=== PATIENT | male | born 1975 | race Caucasian/White ===

== ENCOUNTER 2016-08-01 20:21 | Observation (INO) | payer OTHER ==
[2016-08-01] MEDS ORDERED: Sodium Chloride 0.9% 1000 ML 1,000 ML IV STA (20:40)
[2016-08-01] MEDS ORDERED: CLINDAMYCIN-D5W 900 MG/50 ML*** 50 ML IV ONE ×2 (20:44→20:53)
[2016-08-01] MEDS ORDERED: TORAdol 30 mg Injection IV ONE (20:45)
--- NOTE | 2016-08-01 20:47 | ERPHSYRPT ---
- History of Present Illness Time Seen by Provider: 08/01/16 20:30 Source: patient Exam Limitations: no limitations Physician History: YESTERDAY PT WAS SHOOTING UP METHAMPHETAMINE AND THIS MORNING HAD REDNESS, SWELLING AND TENDERNESS OF THE RIGHT ELBOW, RIGHT KNEE AND LEFT FOOT WITH EARACHES. PT ALSO C/O URINARY HESITATION WHEN HE IS USING METHAMPHETAMINE. PT DENIES FEVER, CHILLS, DIAPHORESIS, CHEST PAIN, NAUSEA, VOMITING, ABDOMINAL PAIN. Allergies/Adverse Reactions: acetaminophen [From [place]] Allergy (Verified 08/01/16 20:49) hydrocodone [From [place]] Allergy (Verified 08/01/16 20:49) - Review of Systems Constitutional: No Fever, No Chills Ears, Nose, & Throat: Ear Pain Respiratory: No Dyspnea Cardiac: No Chest Pain Abdominal/Gastrointestinal: No Abdominal Pain, No Nausea, No Vomiting Genitourinary Symptoms: Hesitancy Musculoskeletal: Other (SWELLING, REDNESS AND TENDERNESS OF THE RIGHT ELBOW, RIGHT KNEE AND LEFT FOOT.) Endocrine: No Excessive Sweating All Other Systems: Reviewed and Negative - Past Medical History Pertinent Past Medical History: Yes Psycho-Social History: Depression, Other Other Medical History: HIV positive - Past Surgical History Past Surgical History: No - Social History Drug Use: methamphetamines - Nursing Vital Signs Nursing Vital Signs: Initial Vital Signs Temperature 99.5 F Temperature Source Oral Pulse Rate 100 Respiratory Rate 20 Blood Pressure [Right Arm] 145/88 Pain Intensity 8 - Physical Exam General Appearance: alert Eye Exam: PERRL/EOMI Ears, Nose, Throat Exam: TMs normal, pharynx normal, moist mucous membranes Neck Exam: normal inspection Respiratory Exam: lungs clear Cardiovascular Exam: normal heart sounds Gastrointestinal/Abdomen Exam: soft, normal bowel sounds Back Exam: normal range of motion Extremity Exam: swelling (MILD ERYTHEMA, EDEMA AND TENDERNESS OF THE MEDIAL ASPECT OF THE RIGHT ELBOW AND ANTERIOR ASPECT OF THE RIGHT KNEE. DORSUM OF THE LEFT FOOT HAS ERYTHEMA AND MILD EDEMA SURROUNDING AN ULCER.) Neurologic Exam: alert, cooperative Skin Exam: other (ULCERS SCATTERED OVER THE EXTREMITIES) SpO2 Interpretation: normal SpO2: 99 Oxygen Delivery: Room Air - Course Nursing assessment & vital signs reviewed: Yes Ordered Tests: Active Orders 24 hr Category Date Time Status IV Insertion STAT Care 08/01/16 20:40 Active BLOOD CULTURE Stat Lab 08/01/16 21:10 Received CBC W DIFF Stat Lab 08/01/16 20:55 Completed CMP Stat Lab 08/01/16 20:55 Completed Lactic Acid Stat Lab 08/01/16 21:45 Ordered Lactic Acid Urgent Lab 08/01/16 20:40 Completed UA W/ MICROSCOPIC Stat Lab 08/01/16 21:00 Completed Urine Triage Profile Stat Lab 08/01/16 21:35 Uncollected Medication Summary Discontinued Medications Generic Name Dose Route Start Last Admin Trade Name Freq PRN Reason Stop Dose Admin Clindamycin HCl/Dextrose 50 mls @ 100 mls/hr 08/01/16 20:44 08/01/16 20:57 Clindamycin-D5w 900 Mg/50 Ml IV 08/01/16 21:13 100 mls/hr STAT ONE Administration Sodium Chloride 1,000 mls @ 999 mls/hr 08/01/16 20:40 08/01/16 20:57 Sodium Chloride 0.9% 1000 Ml IV 08/01/16 21:40 999 mls/hr .Q1H1M STA Administration Clindamycin HCl/Dextrose Confirm 08/01/16 20:53 Clindamycin-D5w 900 Mg/50 Ml Administered 08/01/16 20:54 Dose 50 mls @ ud IV .STK-MED ONE Sodium Chloride Confirm 08/01/16 20:53 Sodium Chloride 0.9% 1000 Ml Administered 08/01/16 20:54 Dose 1,000 mls @ ud .ROUTE .STK-MED ONE Ketorolac Tromethamine 30 mg 08/01/16 20:45 08/01/16 20:56 Toradol 30 Mg Injection IV 08/01/16 20:46 30 mg STAT ONE Administration Ketorolac Tromethamine Confirm 08/01/16 20:52 Toradol 30 Mg Injection Administered 08/01/16 20:53 Dose 30 mg .ROUTE .STK-MED ONE Lab/Rad Data: Laboratory Result Diagrams 08/01/16 20:55 08/01/16 20:55 Laboratory Results 08/01/16 08/01/16 08/01/16 Range/Units 21:00 20:55 20:55 WBC 12.7 H (4.0-10.5) K/mm3 RBC 4.53 (4.1-5.6) M/mm3 Hgb 12.7 (12.5-18.0) gm/dl Hct 39.8 L (42-50) % MCV 87.9 (78-100) fl MCH 28.0 (26-32) pg MCHC 31.9 L (32-36) g/dl RDW 14.6 H (11.5-14.0) % Plt Count 231 (150-450) K/mm3 MPV 10.4 H (6-9.5) fl Gran % 81.3 H (36.0-66.0) % Lymphocytes % 11.4 L (24.0-44.0) % Monocytes % 6.7 (0.0-12.0) % Eosinophils % 0.5 (0.00-5.0) % Basophils % 0.1 (0.0-0.4) % Basophils # 0.01 (0-0.4) Sodium 140 (136-145) mEq/L Potassium 3.7 (3.5-5.1) mEq/L Chloride 102 (98-107) mEq/L Carbon Dioxide 28.7 (21-32) mEq/L Anion Gap 12.8 (5-15) MEQ/L BUN 19 (9-20) mg/dL Creatinine 1.08 (0.55-1.30) mg/dl Estimated GFR > 60 ML/MIN Glucose 90 (70-110) MG/DL Lactic Acid (0.4-2.0) Calcium 8.5 (8.5-10.1) mg/dL Total Bilirubin 0.2 (0.2-1.0) mg/dL AST 22 (15-37) U/L ALT 36 (12-78) U/L Alkaline Phosphatase 88 (46-116) U/L Serum Total Protein 7.3 (6.4-8.2) gm/dL Albumin 3.5 (3.4-5.0) g/dL Ur Collection Type CLEAN CATCH Urine Color YELLOW (YELLOW) Urine Appearance CLEAR (CLEAR) Urine pH 5.5 (5-6) Ur Specific [place] >=1.030 (1.005-1.025) Urine Protein TRACE (Negative) Urine Glucose (UA) NEGATIVE (NEGATIVE) mg/dL Urine Ketones NEGATIVE (NEGATIVE) Urine Nitrite NEGATIVE (NEGATIVE) Urine Bilirubin NEGATIVE (NEGATIVE) Urine Urobilinogen 0.2 (0-1) mg/dL Urine WBC (Auto) NEGATIVE (NEGATIVE) Urine RBC (Auto) NEGATIVE (0-5) Carlos/ul Ur Epithelial Cells FEW (FEW) /HPF Urine Bacteria RARE (NEGATIVE) /HPF Urine Mucus SLIGHT (NEGATIVE) /HPF Specimen Received 08/01/16:2100 08/01/16 Range/Units 20:40 WBC (4.0-10.5) K/mm3 RBC (4.1-5.6) M/mm3 Hgb (12.5-18.0) gm/dl Hct (42-50) % MCV (78-100) fl MCH (26-32) pg MCHC (32-36) g/dl RDW (11.5-14.0) % Plt Count (150-450) K/mm3 MPV (6-9.5) fl Gran % (36.0-66.0) % Lymphocytes % (24.0-44.0) % Monocytes % (0.0-12.0) % Eosinophils % (0.00-5.0) % Basophils % (0.0-0.4) % Basophils # (0-0.4) Sodium (136-145) mEq/L Potassium (3.5-5.1) mEq/L Chloride (98-107) mEq/L Carbon Dioxide (21-32) mEq/L Anion Gap (5-15) MEQ/L BUN (9-20) mg/dL Creatinine (0.55-1.30) mg/dl Estimated GFR ML/MIN Glucose (70-110) MG/DL Lactic Acid 2.4 H (0.4-2.0) Calcium (8.5-10.1) mg/dL Total Bilirubin (0.2-1.0) mg/dL AST (15-37) U/L ALT (12-78) U/L Alkaline Phosphatase (46-116) U/L Serum Total Protein (6.4-8.2) gm/dL Albumin (3.4-5.0) g/dL Ur Collection Type Urine Color (YELLOW) Urine Appearance (CLEAR) Urine pH (5-6) Ur Specific [place] (1.005-1.025) Urine Protein (Negative) Urine Glucose (UA) (NEGATIVE) mg/dL Urine Ketones (NEGATIVE) Urine Nitrite (NEGATIVE) Urine Bilirubin (NEGATIVE) Urine Urobilinogen (0-1) mg/dL Urine WBC (Auto) (NEGATIVE) Urine RBC (Auto) (0-5) Carlos/ul Ur Epithelial Cells (FEW) /HPF Urine Bacteria (NEGATIVE) /HPF Urine Mucus (NEGATIVE) /HPF Specimen Received - Progress Discussed with DrJaclyn: Regina Morin (OBS - [id number]) - Departure Time of Disposition: 21:54 Departure Disposition: Observation Clinical Impression: CELLULITIS OF THE RIGHT ELBOW AND RIGHT KNEE, CELLULITIS OF THE LEFT FOOT, MULTIPLE ULCERS OF EXTREMITIES, HIV, DEPRESSION Condition: Fair Critical Care Time: No Referrals: AIMEE GAMA MD [Primary Care Provider] -
[2016-08-01] MEDS ORDERED: TORAdol 30 mg Injection ONE (20:52)
[2016-08-01] MEDS ORDERED: Sodium Chloride 0.9% 1000 ML 1,000 ML ONE (20:53)
[2016-08-01 21:14] LABS: BASOPHIL % 0.1 % (0.0-0.4); Eosinophil % 0.5 % (0.00-5.0); Granulocytes % 81.3 % (36.0-66.0); Lymphocytes % 11.4 % (24.0-44.0); Mean Cell Volume 87.9 fl (78-100); Mean Platelet Volume 10.4 fl (6-9.5); Monocytes % 6.7 % (0.0-12.0); Platelet Count 231 K/mm3 (150-450); Red Blood Count 4.53 M/mm3 (4.1-5.6); Red Cell Distribution Width 14.6 % (11.5-14.0); White Blood Count 12.7 K/mm3 (4.0-10.5)
[2016-08-01 21:22] LABS: Collection Type CLEAN CATCH
[2016-08-01 21:23] LABS: Bacteria RARE /HPF (NEGATIVE); COMPLETE URINE MICROSCOPIC? YES; Epithelial Cells FEW /HPF (FEW); Mucus SLIGHT /HPF (NEGATIVE); Ph 5.5 (5-6)
[2016-08-01 21:29] LABS: ALBUMIN 3.5 g/dL (3.4-5.0); ALKALINE PHOSPHATASE 88 U/L (46-116); ANION GAP 12.8 MEQ/L (5-15); BILIRUBIN,TOTAL 0.2 mg/dL (0.2-1.0); BLOOD UREA NITROGEN 19 mg/dL (9-20); CHLORIDE 102 mEq/L (98-107); Carbon Dioxide 28.7 mEq/L (21-32); Glucose 90 MG/DL (70-110); Potassium 3.7 mEq/L (3.5-5.1); SGOT/AST 22 U/L (15-37); SGPT/ALT 36 U/L (12-78); SODIUM 140 mEq/L (136-145); Total Protein 7.3 gm/dL (6.4-8.2)
[2016-08-01] MEDS ORDERED: Phenergan 25 MG INJ IV PRN (22:22)
[2016-08-01] MEDS ORDERED: xanAX 0.25 MG PO PRN (23:18)
[2016-08-01] MEDS ORDERED: ZOVIRAX 200 MG PO ONE (23:22)
[2016-08-01] MEDS: Sodium Chloride 0.9% 1000 ML 1,000 ML IV SCH (23:28)
[2016-08-01] MEDS ORDERED: NEURONTIN 300 MG PO ONE (23:30)
[2016-08-01] MEDS ORDERED: Naprosyn 500 MG PO ONE (23:30)
[2016-08-01] MEDS ORDERED: Wellbutrin XL 150 MG PO ONE (23:30)
[2016-08-01] MEDS ORDERED: Wellbutrin SR 150 MG ONE (23:50)
[2016-08-01] MEDS ORDERED: CLINDAMYCIN-D5W 600 MG/50 ML*** 50 ML IV ONE (23:54)
[2016-08-02] MEDS ORDERED: Cleocin Phosphate IV 600 MG/4 ML IV SCH
[2016-08-02] MEDS ORDERED: xanAX 0.25 MG ONE (00:29)
[2016-08-02] MEDS: ceLEXa 20 MG PO SCH ×2 (01:12→08:58)
[2016-08-02] MEDS: BENADRYL 25 MG CAPSULE PO PRN ×2 (01:13→21:33)
[2016-08-02] MEDS: Zocor 10MG PO SCH ×2 (01:14→21:33)
[2016-08-02] MEDS: CLINDAMYCIN-D5W 600 MG/50 ML*** 50 ML IV SCH ×5 (01:14→23:54)
[2016-08-02 05:51] LABS: BASOPHIL % 0.1 % (0.0-0.4); Eosinophil % 0.6 % (0.00-5.0); Granulocytes % 73.5 % (36.0-66.0); Lymphocytes % 17.4 % (24.0-44.0); Mean Cell Volume 87.4 fl (78-100); Monocytes % 8.4 % (0.0-12.0); Platelet Count 186 K/mm3 (150-450); Red Blood Count 3.97 M/mm3 (4.1-5.6); Red Cell Distribution Width 14.4 % (11.5-14.0); White Blood Count 9.2 K/mm3 (4.0-10.5)
[2016-08-02 06:01] LABS: Mean Corpuscular Hemoglobin 27.9 pg (26-32)
[2016-08-02 06:06] LABS: ALBUMIN 2.9 g/dL (3.4-5.0); ALKALINE PHOSPHATASE 71 U/L (46-116); BILIRUBIN,TOTAL 0.2 mg/dL (0.2-1.0); BLOOD UREA NITROGEN 13 mg/dL (9-20); CHLORIDE 106 mEq/L (98-107); Carbon Dioxide 26.7 mEq/L (21-32); Glucose 131 MG/DL (70-110); Potassium 3.5 mEq/L (3.5-5.1); SGOT/AST 17 U/L (15-37); SGPT/ALT 13 U/L (12-78); SODIUM 139 mEq/L (136-145); Total Protein 6.2 gm/dL (6.4-8.2)
[2016-08-02] MEDS: Sodium Chloride 0.9% 1000 ML 1,000 ML IV SCH ×2 (08:59→22:31)
[2016-08-02] MEDS ORDERED: FLUZONE QUAD 2016-2017 SYRINGE 36MO-64YO IM ONE (10:00)
[2016-08-02] MEDS: Levofloxacin 500MG/100ML D5W 100 ML IV SCH (12:42)
[2016-08-02] MEDS: MOTRIN 400 MG PO PRN (12:42)
[2016-08-02] MEDS: xanAX 0.25 MG PO PRN (18:16)
[2016-08-02] MEDS: TORAdol 30 mg Injection IV PRN (18:16)
[2016-08-02] MEDS ORDERED: NON-FORMULARY ITEM PO SCH (22:00)
[2016-08-03 05:34] LABS: Mean Cell Volume 88.3 fl (78-100); Mean Platelet Volume 10.4 fl (6-9.5); Platelet Count 187 K/mm3 (150-450); Red Blood Count 4.03 M/mm3 (4.1-5.6); Red Cell Distribution Width 14.7 % (11.5-14.0); White Blood Count 6.3 K/mm3 (4.0-10.5)
[2016-08-03] MEDS ORDERED: CLINDAMYCIN-D5W 600 MG/50 ML*** 50 ML IV ONE (05:34)
[2016-08-03 05:38] LABS: Mean Corpuscular Hemoglobin 27.7 pg (26-32)
[2016-08-03] MEDS: CLINDAMYCIN-D5W 600 MG/50 ML*** 50 ML IV SCH ×6 (05:41→23:32)
[2016-08-03 06:01] LABS: ALBUMIN 2.7 g/dL (3.4-5.0); ALKALINE PHOSPHATASE 70 U/L (46-116); ANION GAP 12.1 MEQ/L (5-15); BILIRUBIN,TOTAL 0.2 mg/dL (0.2-1.0); BLOOD UREA NITROGEN 11 mg/dL (9-20); CHLORIDE 107 mEq/L (98-107); Carbon Dioxide 25.7 mEq/L (21-32); Glucose 107 MG/DL (70-110); Potassium 3.9 mEq/L (3.5-5.1); SGOT/AST 16 U/L (15-37); SGPT/ALT 25 U/L (12-78); SODIUM 141 mEq/L (136-145); Total Protein 6.4 gm/dL (6.4-8.2)
--- NOTE | 2016-08-03 08:53 | HP ---
HISTORY OF PRESENT ILLNESS: Eric Beaver is a 41 year old male with past medical history HIV, depression and methamphetamine abuse. He was taking methamphetamine and presented to the emergency room yesterday with areas of redness, swelling, pain in right elbow and right knee. Also he had complained of some urinary hesitation. There was no reported history of fever or chills. The patient does have chronic nonhealing areas in left foot, left elbow and right wrist area. Upon initial evaluation in the emergency room he was noted to have blood pressure of 145/88, heart rate 100, respiratory rate 20, temperature 99.5F. He was treated with Clindamycin 900 mg IV x1, normal saline 1 liter x1, Toradol 30 mg IV x1. Subsequently he was admitted for further monitoring and management. Since admission he has continued on IV antibiotics. At the time of this evaluation he is alert, awake, comfortable, complains of pain, swelling, redness over right knee, right elbow area. Complains of right flank pain. He denies any history of injury or unusual activity prior to onset of flank pain. Appears comfortable. PAST MEDICAL HISTORY: As noted above. The patient also has history of chronic back pain. PAST SURGICAL HISTORY: Noncontributory. ALLERGIES: ACETAMINOPHEN, HYDROCODONE. CURRENT MEDICATIONS: Zovirax. FAMILY HISTORY: Noncontributory. SOCIAL HISTORY: The patient uses amphetamines. REVIEW OF SYSTEMS: Denies headache or dizziness. Denies fatigue. Denies fever. Denies chest pain, shortness of breath or cough. Denies abdominal pain, nausea or vomiting. Denies constipation or diarrhea. Complains of urinary hesitancy. Complains of right flank pain. Complains of pain and swelling in the right elbow and right knee area. The patient also complains of feeling of depressed, denied suicidal or homicidal ideation. PHYSICAL EXAMINATION: A young male lying comfortably in bed, not in acute distress. VITAL SIGNS: Blood pressure 119/64, heart rate 80, respiratory rate 18, temperature 98.3F, temperature max of 99.2F. Oxygen saturation 95% on room air. HEENT: Normocephalic. Pallor is present. No icterus is noted. NECK: No JVD is present. CVS: S1, S2 present. RESPIRATORY: Breath sounds are bilaterally diminished and clear to auscultation. ABDOMEN: Soft, nontender. NEURO: He is alert, oriented x3. EXTREMITIES: No edema on bilateral lower extremities. Examination of right elbow revealed edema, erythema, mildly increase in local temperature, local tenderness is present. Range of movement is painful. Examination of the right knee area reveals edema, erythema, local increased temperature. Local tenderness is present. Local warmth is present. Range of movement of right knee is painful. About 2 x 0.5 cm oval-shaped area is noted on dorsal aspect of left foot, some erythema is present. Area is open. No discharge is present. 4 mm sized dry area with scab it noted near left elbow. No erythema. Discharge is present. No local tenderness is present. About 6 to 7 mm size area is present near right wrist. The area is dry covered with scab. No erythema, no discharge is present. As per patient right knee and right areas are chronic and nonhealing. LABORATORY DATA AND TESTS: Notable for CBC with white blood cell of 12.7, hemoglobin 12.7, hematocrit 39.8. Today's CBC shows white blood cell of 9.2, hemoglobin 11.1, hematocrit 34.7. CMP on admission was unremarkable. Lactic acid was 2.4. Today's CMP is unremarkable. Glucose 131. UA showed trace protein, negative white blood cell, negative red blood cells, few epithelial cells, rare bacteria. Urine tox positive for methamphetamine and marijuana. Blood cultures from 08/01/2016 are pending. ASSESSMENT: A 41 year old male with impression: 1) Cellulitis of right elbow. 2) Cellulitis of right knee. 3) Chronic nonhealing superficial ulcers (left elbow, right wrist, dorsal aspect of left foot). 4) HIV. 5) Depression. 6) Urinary tract infection. PLAN: The patient is admitted for further monitoring and management. Continue Clindamycin. Will add Levaquin. Follow up CBC and cultures. Will obtain repeat lactic acid. Will obtain CT of right elbow, right knee area. The patient states that he just to continue on current antidepressant medications at this time and declines any change or increase of dose. Also addition of p.o. Motrin for back pain. The patient's clinical condition, work up results and plan of management was discussed with him in detail. The patient seems to be in understanding and agreement. Discussed with patient's nurse who was present at the time of this evaluation.
--- NOTE | 2016-08-03 09:31 | XRAY ---
Indication: Pain, swelling, and fever. Cellulitis. Multiple contiguous axial images obtained through the right elbow without contrast. Two-dimensional sagittal and coronal reformatted images obtained. Comparison: None Posterior elbow cutaneous and subcutaneous soft tissue swelling without focal solid/cystic mass or abnormal fluid/air collection. No acute fracture, suspicious lytic/blastic lesion, or osseous destructive process. Right elbow articulation is anatomic. No effusion. Impression: Posterior elbow cutaneous/subcutaneous soft tissue swelling favoring clinically reported cellulitis. No underlying fluid collection or evidence for osteomyelitis on this noncontrast exam. CT DI 37.17
--- NOTE | 2016-08-03 09:32 | XRAY ---
Indication: Pain, swelling, and fever. Cellulitis. Multiple contiguous axial images obtained through the right knee without contrast. Two-dimensional sagittal and coronal reformatted images obtained. Comparison: None Anterior knee cutaneous and subcutaneous soft tissue swelling without focal solid/cystic mass or abnormal fluid/air collection. Tiny nonspecific suprapatellar effusion. 4 mm medial condyle bone island. No acute fracture, suspicious lytic/blastic lesion, or osseous destructive process. Right knee articulation is anatomic. Medial femoral groove is shallow, a potential increased risk for patellar subluxation/dislocation. Remaining visualized noncontrasted soft tissues unremarkable. Impression: 1. Anterior knee cutaneous/subcutaneous soft tissue swelling favoring clinically reported cellulitis. No underlying evidence for osteomyelitis on this noncontrast exam. 2. Incidental tiny nonspecific suprapatellar effusion and medial condyle tiny bone island. 3. Shallow medial femoral groove, a potential increased risk for patellar subluxation/dislocation. CT DI 37.17
[2016-08-03] MEDS: TORAdol 30 mg Injection IV PRN ×2 (09:33→20:41)
[2016-08-03] MEDS: xanAX 0.25 MG PO PRN ×2 (09:33→22:53)
[2016-08-03] MEDS: ceLEXa 20 MG PO SCH (09:35)
[2016-08-03] MEDS: Levofloxacin 500MG/100ML D5W 100 ML IV SCH (09:35)
[2016-08-03] MEDS: Sodium Chloride 0.9% 1000 ML 1,000 ML IV SCH (11:40)
[2016-08-03] MEDS ORDERED: PHARMACY DOSING REQUIRED: VANCOMYCIN IV ONE (13:18)
--- NOTE | 2016-08-03 13:26 | PCM.HP ---
History of Present Illness - Chief Complaint Chief Complaint: cellulitis R elbow, Rt knee, L foot, for 2-3 days History of Present Illness: is a 41 year old male.YESTERDAY PT WAS SHOOTING UP METHAMPHETAMINE AND THIS MORNING HAD REDNESS, SWELLING AND TENDERNESS OF THE RIGHT ELBOW, RIGHT KNEE AND LEFT FOOT WITH EARACHES. PT ALSO C/O URINARY HESITATION WHEN HE IS USING METHAMPHETAMINE. PT DENIES FEVER, CHILLS, DIAPHORESIS, CHEST PAIN, NAUSEA , VOMITING, ABDOMINAL PAIN. - Review of Systems Constitutional: No Fever, No Chills Eyes: No Symptoms Ears, Nose, & Throat: No Symptoms Respiratory: No Cough, No Short Of Breath Cardiac: No Chest Pain, No Edema, No Syncope Abdominal/Gastrointestinal: No Abdominal Pain, No Nausea, No Vomiting, No Diarrhea Genitourinary Symptoms: No Dysuria Musculoskeletal: Joint Redness, Joint Swelling, No Back Pain, No Neck Pain Skin: No Rash Neurological: No Dizziness, No Focal Weakness, No Sensory Changes Psychological: No Symptoms Endocrine: No Symptoms Hematologic/Lymphatic: No Symptoms Immunological/Allergic: No Symptoms Medications & Allergies Home Medications: Home Medication List Acyclovir 200 mg Cap [Zovirax 200 mg ] 200 mg PO DAILY 08/01/16 [History Confirmed 08/01/16] Atorvastatin Calcium [Lipitor] 10 mg PO DAILY 08/01/16 [History Confirmed ] Bupropion HCl Xl 150 mg [Wellbutrin XL 150 MG] 300 mg PO DAILY 08/01/16 [ History Confirmed 08/01/16] Citalopram Hydrobromide [Celexa] 20 mg PO DAILY 08/01/16 [History Confirmed 05/19] Diphenhydramine HCl [Benadryl] 50 mg PO QHS 08/01/16 [History Confirmed 08/01/16 ] Efavirenz/Emtricitab/Tenofovir [Atripla Tablet] 1 each PO DAILY 08/01/16 [ History Confirmed 08/01/16] Gabapentin 600 mg PO DAILY 08/01/16 [History Confirmed 08/01/16] Melatonin 6 mg PO DAILY 08/01/16 [History Confirmed 08/01/16] Naproxen 500 mg PO DAILY 08/01/16 [History Confirmed 08/01/16] Allergies/Adverse Reactions: Allergies Allergy/AdvReac Type Severity Reaction Status Date / Time acetaminophen [From [place]] Allergy Verified 08/01/16 20:49 hydrocodone [From [place]] Allergy Verified 08/01/16 20:49 - Past Medical History Past Medical History: Yes Pyscho-Social History: Depression Comment: HIV positive - Past Surgical History Past Surgical History: No - Social History Smoking Status: Former smoker Exposure to second hand smoke: No Alcohol: Rarely Drug Use: methamphetamines - Physical Exam Vital Signs: Vital Signs - 24 hr Temp Pulse Resp BP Pulse Ox 08/03/16 07:45 98.3 F 86 16 125/58 95 08/03/16 04:00 98.4 F 83 20 121/64 97 08/03/16 00:00 98.7 F 93 H 20 120/65 97 08/02/16 20:00 98.2 F 100 H 18 131/65 95 08/02/16 16:30 98.2 F 80 20 122/68 94 L General Appearance: no apparent distress, alert Neurologic Exam: alert, oriented x 3, cooperative, normal mood/affect, nml cerebellar function, nml station & gait, sensation nml, No motor deficits Eye Exam: PERRL/EOMI, eyes nml inspection Ears, Nose, Throat Exam: normal ENT inspection, TMs normal, pharynx normal, moist mucous membranes Neck Exam: normal inspection, non-tender, supple, full range of motion Respiratory Exam: normal breath sounds, lungs clear, No respiratory distress Cardiovascular Exam: regular rate/rhythm, normal heart sounds, normal peripheral pulses Gastrointestinal/Abdomen Exam: soft, normal bowel sounds, No tenderness, No mass Back Exam: normal inspection, normal range of motion, No CVA tenderness, No vertebral tenderness Extremity Exam: normal inspection, normal range of motion, pelvis stable Skin Exam: normal color, warm, dry, No rash Lymphatic Exam: No adenopathy Results - Labs Lab/Micro Results: Lab Results-Last 24 Hours 08/03/16 08/03/16 Range/Units 05:15 05:15 WBC 6.3 (4.0-10.5) K/mm3 RBC 4.03 L (4.1-5.6) M/mm3 Hgb 11.2 L (12.5-18.0) gm/dl Hct 35.6 L (42-50) % MCV 88.3 (78-100) fl MCH 27.7 (26-32) pg MCHC 31.5 L (32-36) g/dl RDW 14.7 H (11.5-14.0) % Plt Count 187 (150-450) K/mm3 MPV 10.4 H (6-9.5) fl Sodium 141 (136-145) mEq/L Potassium 3.9 (3.5-5.1) mEq/L Chloride 107 (98-107) mEq/L Carbon Dioxide 25.7 (21-32) mEq/L Anion Gap 12.1 (5-15) MEQ/L BUN 11 (9-20) mg/dL Creatinine 0.90 (0.55-1.30) mg/dl Estimated GFR > 60 ML/MIN Glucose 107 (70-110) MG/DL Calcium 8.3 L (8.5-10.1) mg/dL Total Bilirubin 0.2 (0.2-1.0) mg/dL AST 16 (15-37) U/L ALT 25 (12-78) U/L Alkaline Phosphatase 70 (46-116) U/L Serum Total Protein 6.4 (6.4-8.2) gm/dL Albumin 2.7 L (3.4-5.0) g/dL - Radiology Impressions Radiology Exams & Impressions: Radiology Procedures Category Date Time Status LOWER EXTREMITY WO CONTRAST [CT] Routine Exams 08/03/16 12:00 Completed UPPER EXTREMITY W/O CONTRAST [CT] Routine Exams 08/03/16 08:00 Completed Assessment/Plan (1) Septic arthritis of elbow, right Current Visit: Yes Status: Acute Qualifiers: Septic arthritis organism: staphylococcal Qualified Code(s): M00.021 - Staphylococcal arthritis, right elbow Code(s): M00.9 - PYOGENIC ARTHRITIS, UNSPECIFIED (2) Septic arthritis of foot Current Visit: Yes Status: Acute Qualifiers: Septic arthritis organism: staphylococcal Laterality: right Qualified Code(s): M00.071 - Staphylococcal arthritis, right ankle and foot Code(s): M00.9 - PYOGENIC ARTHRITIS, UNSPECIFIED (3) Septic arthritis of knee, right Current Visit: Yes Status: Acute Qualifiers: Septic arthritis organism: staphylococcal Qualified Code(s): M00.061 - Staphylococcal arthritis, right knee Code(s): M00.9 - PYOGENIC ARTHRITIS, UNSPECIFIED (4) HIV (human immunodeficiency virus infection) Current Visit: Yes Status: Chronic
[2016-08-03] MEDS: VANCOCIN 1 GM VIAL*** 2 GM in Sodium Chloride 0.9% 500 ML 500 ML IV SCH ×2 (14:44→20:41)
[2016-08-03] MEDS: PATIENT OWN MEDICATION PO SCH (20:41)
[2016-08-03] MEDS: Zocor 10MG PO SCH (20:42)
[2016-08-03] MEDS: BENADRYL 25 MG CAPSULE PO PRN (22:54)
[2016-08-04] MEDS: Sodium Chloride 0.9% 1000 ML 1,000 ML IV SCH (04:56)
[2016-08-04] MEDS: CLINDAMYCIN-D5W 600 MG/50 ML*** 50 ML IV SCH ×3 (05:38→18:27)
[2016-08-04] MEDS: TORAdol 30 mg Injection IV PRN (05:39)
[2016-08-04] MEDS ORDERED: MEDICATION INTERVENTION MC PRN (07:18)
[2016-08-04] MEDS: ceLEXa 20 MG PO SCH (09:50)
[2016-08-04] MEDS: Levofloxacin 500MG/100ML D5W 100 ML IV SCH (09:50)
[2016-08-04] MEDS ORDERED: MELATONIN 6 MG PO SCH (10:00)
[2016-08-04] MEDS ORDERED: Wellbutrin XL 150 MG PO SCH (10:00)
[2016-08-04] MEDS ORDERED: ZOVIRAX 200 MG PO SCH (10:00)
[2016-08-04] MEDS ORDERED: NEURONTIN 300 MG PO SCH (10:00)
[2016-08-04] MEDS ORDERED: Naprosyn 500 MG PO SCH (10:00)
[2016-08-04] MEDS ORDERED: NON-FORMULARY ITEM (Gabapentin [Gabapentin] 600 MG) PO SCH (10:00)
[2016-08-04] MEDS: VANCOCIN 1 GM VIAL*** 2 GM in Sodium Chloride 0.9% 500 ML 500 ML IV SCH ×2 (11:17→18:50)
[2016-08-04 11:42] VITALS: O2SAT 97
--- NOTE | 2016-08-04 12:47 | PCM.DS ---
Discharge Summary Date of Admission: 08/01/16 22:19 Admitting Physician: AIMEE GAAM Primary Care Provider: AIMEE GAMA Allergies Allergies acetaminophen [From [facility]] Allergy (Verified 08/01/16 20:49) hydrocodone [From [facility]] Allergy (Verified 08/01/16 20:49) Hospital Summary - Hospital Course Hospital Course: Chief Complaint Diagnosis cellulitis R elbow, Rt knee, L foot, for 2-3 days Allergies Allergy/AdvReac Type Severity Reaction Status Date / Time acetaminophen [From [facility]] Allergy Verified 08/01/16 20:49 hydrocodone [From [facility]] Allergy Verified 08/01/16 20:49 Vital Signs (Last 24 hours) Temp Pulse Resp BP Pulse Ox 08/04/16 11:41 98.1 F 72 20 122/70 97 08/04/16 07:12 98.2 F 82 18 113/67 96 08/04/16 04:00 98.5 F 89 19 139/72 96 08/03/16 23:39 98.9 F 84 20 138/79 95 08/03/16 20:00 98.4 F 90 21 130/76 96 08/03/16 16:01 98.8 F 81 16 128/81 97 08/03/16 16:00 98.4 F 83 16 113/65 95 Home Medications Medication Instructions Recorded Confirmed Last Taken Type Acyclovir 200 mg Cap [Zovirax 200 mg PO DAILY 08/01/16 08/01/16 07/31/16 22: 00 History 200 mg ] Atorvastatin Calcium [Lipitor] 10 mg PO DAILY 08/01/16 08/01/16 07/31/16 22:00 History Bupropion HCl Xl 150 mg 300 mg PO DAILY 08/01/16 08/01/16 07/31/16 22:00 History [Wellbutrin XL 150 MG] Citalopram Hydrobromide [Celexa] 20 mg PO DAILY 08/01/16 08/01/16 07/31/16 22: 00 History Diphenhydramine HCl [Benadryl] 50 mg PO QHS 08/01/16 08/01/16 07/31/16 22:00 History Efavirenz/Emtricitab/Tenofovir 1 each PO DAILY 0408/01/16 07/31/16 22:00 History [Atripla Tablet] Gabapentin 600 mg PO DAILY 08/01/16 08/01/16 07/31/16 22:00 History Melatonin 6 mg PO DAILY 08/01/16 08/01/16 07/31/16 22:00 History Naproxen 500 mg PO DAILY 08/01/16 08/01/16 07/31/16 22:00 History Current Medications Generic Name Dose Route Start Last Admin Trade Name Freq PRN Reason Stop Dose Admin Acyclovir 200 mg 08/04/16 10:00 08/04/16 09:49 Zovirax 200 Mg PO 09/03/16 09:59 200 mg DAILY GRABIEL Administration Alprazolam 0.25 mg 08/02/16 07:16 08/03/16 22:53 Xanax 0.25 Mg PO 08/31/16 23:17 0.25 mg TID PRN PRN Administration ANXIETY Bupropion HCl 300 mg 08/04/16 10:00 08/04/16 09:50 Wellbutrin Xl 150 Mg PO 09/03/16 09:59 300 mg DAILY GRABIEL Administration Citalopram Hydrobromide 20 mg 08/01/16 23:30 08/04/16 09:50 Celexa 20 Mg PO 08/31/16 23:29 20 mg DAILY GRABIEL Administration Diphenhydramine HCl 50 mg 08/04/16 22:00 Benadryl 25 Mg Capsule PO 09/03/16 21:59 QHS GRABIEL Gabapentin 600 mg 08/04/16 10:00 08/04/16 09:49 Neurontin 300 Mg PO 09/03/16 09:59 600 mg DAILY GRABIEL Administration Sodium Chloride 1,000 mls @ 100 mls/hr 08/01/16 22:22 08/04/16 04:56 Sodium Chloride 0.9% 1000 Ml IV 08/31/16 22:21 100 mls/hr .Q10H GRABIEL Administration Levofloxacin/Dextrose 100 mls @ 100 mls/hr 08/02/16 12:00 08/04/16 09:50 Levofloxacin 500mg/100ml D5w IV 09/01/16 11:59 100 mls/hr Q24H10 GRABIEL Administration Clindamycin HCl/Dextrose 50 mls @ 100 mls/hr 08/03/16 12:00 08/04/16 05:38 Clindamycin-D5w 600 Mg/50 Ml IV 09/02/16 11:59 100 mls/hr Q6HT GRABIEL Administration Vancomycin HCl 2 gm/ Sodium 500 mls @ 167 mls/hr 08/03/16 14:00 08/04/16 11: 17 Chloride IV 09/02/16 13:59 167 mls/hr Q12HT GRABIEL Administration Ibuprofen 400 mg 08/02/16 11:59 08/02/16 12:42 Motrin 400 Mg PO 09/01/16 11:58 400 mg QID PRN PRN Administration PAIN Ketorolac Tromethamine 30 mg 08/01/16 22:22 08/04/16 05:39 Toradol 30 Mg Injection IV 08/06/16 22:21 30 mg Q6H PRN PRN Administration PAIN Naproxen 500 mg 08/04/16 10:00 08/04/16 09:49 Naprosyn 500 Mg PO 09/03/16 09:59 500 mg DAILY GRABIEL Administration Patient Own Med ( 0 each 08/03/16 22:00 08/03/16 20:41 Atripla) PO 09/02/16 21:59 1 each HS GRABIEL Administration Promethazine HCl 12.5 mg 08/01/16 22:22 Phenergan 25 Mg Inj IV 08/31/16 22:21 Q2H PRN PRN NAUSEA/VOMITING Simvastatin 10 mg 08/01/16 23:30 08/03/16 20:42 Zocor 10mg PO 08/31/16 23:29 10 mg HS GRABIEL Administration Discontinued Medications Generic Name Dose Route Start Last Admin Trade Name Freq PRN Reason Stop Dose Admin Acyclovir 200 mg 08/01/16 23:22 08/02/16 01:13 Zovirax 200 Mg PO 08/01/16 23:23 200 mg ONCE ONE Administration Alprazolam 0.25 mg 08/01/16 23:18 08/02/16 01:13 Xanax 0.25 Mg PO 09/01/16 09:59 0.25 mg TID PRN Administration ANXIETY Alprazolam Confirm 08/02/16 00:29 Xanax 0.25 Mg Administered 08/02/16 00:30 Dose 0.25 mg .ROUTE .STK-MED ONE Bupropion HCl 300 mg 08/01/16 23:30 08/02/16 05:41 Wellbutrin Xl 150 Mg PO 08/01/16 23:31 Not Given ONCE ONE Bupropion HCl Confirm 08/01/16 23:50 Wellbutrin Sr 150 Mg Administered 08/01/16 23:51 Dose 300 mg .ROUTE .STK-MED ONE Clindamycin Phosphate 600 mg 08/02/16 00:00 08/02/16 05:50 Cleocin Phosphate Iv 600 Mg/4 Ml IV 09/01/16 00:00 Not Given Q6HT GRABIEL Diphenhydramine HCl 50 mg 08/01/16 23:27 08/03/16 22:54 Benadryl 25 Mg Capsule PO 08/31/16 23:26 50 mg HS PRN PRN Administration INSOMNIA Gabapentin 600 mg 08/01/16 23:30 08/02/16 01:13 Neurontin 300 Mg PO 08/01/16 23:31 600 mg ONCE ONE Administration Clindamycin HCl/Dextrose 50 mls @ 100 mls/hr 08/01/16 20:44 08/01/16 20:57 Clindamycin-D5w 900 Mg/50 Ml IV 08/01/16 21:13 100 mls/hr STAT ONE Administration Sodium Chloride 1,000 mls @ 999 mls/hr 08/01/16 20:40 08/01/16 20:57 Sodium Chloride 0.9% 1000 Ml IV 08/01/16 21:40 999 mls/hr .Q1H1M STA Administration Clindamycin HCl/Dextrose Confirm 08/01/16 20:53 Clindamycin-D5w 900 Mg/50 Ml Administered 08/01/16 20:54 Dose 50 mls @ ud IV .STK-MED ONE Sodium Chloride Confirm 08/01/16 20:53 Sodium Chloride 0.9% 1000 Ml Administered 08/01/16 20:54 Dose 1,000 mls @ ud .ROUTE .STK-MED ONE Clindamycin HCl/Dextrose Confirm 08/01/16 23:54 Clindamycin-D5w 600 Mg/50 Ml Administered 08/01/16 23:55 Dose 50 mls @ ud IV .STK-MED ONE Clindamycin HCl/Dextrose 50 mls @ 100 mls/hr 08/02/16 01:00 08/03/16 05:41 Clindamycin-D5w 600 Mg/50 Ml IV 09/01/16 00:59 100 mls/hr Q6H GRABIEL Administration Clindamycin HCl/Dextrose Confirm 08/03/16 05:34 Clindamycin-D5w 600 Mg/50 Ml Administered 08/03/16 05:35 Dose 50 mls @ ud IV .STK-MED ONE Influenza Virus Vaccine Quadrival 0.5 ml 08/02/16 10:00 08/02/16 08:57 Fluzone Quad [id number] Syringe 36mo-64yo IM 08/02/16 10:01 0.5 ml .ONCE ONE Administration Ketorolac Tromethamine 30 mg 08/01/16 20:45 08/01/16 20:56 Toradol 30 Mg Injection IV 08/01/16 20:46 30 mg STAT ONE Administration Ketorolac Tromethamine Confirm 08/01/16 20:52 Toradol 30 Mg Injection Administered 08/01/16 20:53 Dose 30 mg .ROUTE .STK-MED ONE Naproxen 500 mg 08/01/16 23:30 08/02/16 01:14 Naprosyn 500 Mg PO 08/01/16 23:31 500 mg ONCE ONE Administration Pt Home Med (Atripla 1 each 08/02/16 22:00 08/02/16 21:33 ) PO 09/01/16 21:59 1 each HS GRABIEL Administration Non-Formulary Medication 1 each 08/03/16 13:18 08/03/16 14:44 Pharmacy Dosing Required: Vancomycin IV 08/03/16 13:19 1 each STAT ONE Administration Intake & Output (Last 24 hours) 08/02/16 08/03/16 08/04/16 08/05/16 11:59 11:59 11:59 11:59 Intake Total 400 1181 4255 Output Total 1800 Balance 400 1181 2455 Weight 106.141 kg 106.231 kg 106.231 kg Orders (Last 24 hours) Category Date Time Status LOWER EXTREMITY WO CONTRAST [CT] Routine Exams 08/03/16 12:00 Completed Acyclovir 200 mg Cap [Zovirax 200 mg ] Med 08/04/16 10:00 Active 200 mg PO DAILY Bupropion HCl Xl 150 mg [Wellbutrin XL 150 MG] Med 08/04/16 10:00 Active 300 mg PO DAILY Clindamycin 600 mg/D5w 50 ml [Clindamycin-D5w 600 mg/ Med 08/03/16 12:00 Active 50 ml] 50 ml IV Q6HT Diphenhydramine HCl 25 mg [Benadryl 25 mg Capsule Med 08/04/16 22:00 Active ] 50 mg PO QHS Gabapentin 300 mg [Neurontin 300 mg] Med 08/04/16 10:00 Active 600 mg PO DAILY Medication Intervention Med 08/04/16 07:18 Active 1 each MC UD PRN Naproxen 500 mg [Naprosyn 500 MG] Med 08/04/16 10:00 Active 500 mg PO DAILY Patient Own Med [Patient Own Medication] Med 08/03/16 22:00 Active 0 each PO HS Pharmacy Dose Request: Vancomy [Pharmacy Dosing Med 08/03/16 13:18 Discontinued Required: Vancomycin] 1 each IV STAT ONE Vancomycin HCl 1 gm Inj [Vancocin 1 gm Vial] 2 gm Med 08/03/16 14:00 Active NaCl 0.9% 500 ml [Sodium Chloride 0.9% 500 ML] 500 ml IV Q12HT Patient is 41 years old male came to ER with multiple joint redness. Patient has been using IV methamphetamine for few days. Patient is also HIV positive. Patient blood cultures didnot grow any organism but considering IV drug use and inflammatory process of Joint, IV levaquin, clindamycin and vancomycin started. Patient is being discharged with IV vancomycin as outpatient. Patient will get IV antibiotics therapy for 10 day at [facility] outpatient. - Vitals & Intake/Output Vital Signs: Vital Signs Temperature 98.1 F 08/04/16 11:41 Pulse Rate 72 08/04/16 11:41 Respiratory Rate 20 08/04/16 11:41 Blood Pressure 122/70 08/04/16 11:41 O2 Sat by Pulse Oximetry 97 08/04/16 11:41 Intake & Output: Intake & Output 08/02/16 08/03/16 08/04/16 08/05/16 11:59 11:59 11:59 11:59 Intake Total 400 1181 4255 Output Total 1800 Balance 400 1181 2455 Weight 106.141 kg 106.231 kg 106.231 kg - Lab Result Diagrams: 08/03/16 05:15 08/03/16 05:15 - Radiology Exams Ordered Rad Exams-Entire Visit: Radiology Procedures Category Date Time Status LOWER EXTREMITY WO CONTRAST [CT] Routine Exams 08/03/16 12:00 Completed UPPER EXTREMITY W/O CONTRAST [CT] Routine Exams 08/03/16 08:00 Completed - Procedures and Test Procedures and Tests throughout Hospitalization: Therapy Orders & Screens 08/02/16 11:09 OT Screen per Nursing Assess ONCE Comment: Protocol Order Physician Instructions: Greater than 3 points order OT Admission Screening Reason For Exam: Triggered on Admission Diagnosis: cellulitis R elbow, Rt knee, L foot, HIV, depression Open Wound/Cellutlitis/Pressure Ulcers: Yes Acute Fx/ORIF/Change in wt bearing status: No Severe MUSCULOSKELETAL pain: No ADL Dysfunction: No Acute CVA w/Hemiparesis/Hemiplegia: No Decreased Functional Mobility/Strength: No Sprain/Strain: No Acute Post-op Mobility Dysfunction: No Total Points: 5 PT Screen per Nursing Assess ONCE Comment: Protocol Order Physician Instructions: Greater than 3 points order PT Admission Screenin Reason For Exam: Triggered on Admission Diagnosis: cellulitis R elbow, Rt knee, L foot, HIV, depression Open Wound/Cellutlitis/Pressure Ulcers: Yes Acute Fx/ORIF/Change in wt bearing status: No Severe MUSCULOSKELETAL pain: No ADL Dysfunction: No Acute CVA w/Hemiparesis/Hemiplegia: No Decreased Functional Mobility/Strength: No Sprain/Strain: No Acute Post-op Mobility Dysfunction: No Total Points: 5 Discharge Exam General Appearance: no apparent distress, alert Neurologic Exam: alert, oriented x 3, cooperative, normal mood/affect, nml cerebellar function, sensation nml, No motor deficits Skin Exam: normal color, warm, dry Eye Exam: PERRL, EOMI, eyes nml inspection Ears, Nose, Throat Exam: normal ENT inspection, pharynx normal, moist mucous membranes Neck Exam: normal inspection, non-tender, supple, full range of motion Respiratory Exam: normal breath sounds, lungs clear, No respiratory distress Cardiovascular Exam: regular rate/rhythm, normal heart sounds Gastrointestinal/Abdomen Exam: soft, No tenderness, No mass Extremity Exam: normal inspection, normal range of motion Back Exam: normal inspection, normal range of motion, No CVA tenderness, No vertebral tenderness Male Genitalia Exam: deferred Rectal Exam: deferred Final Diagnosis/Problem List - Final Discharge Diagnosis/Problem (1) Septic arthritis of elbow, right Current Visit: Yes Status: Acute Priority: High Assessment & Plan: see discharge paln (2) Septic arthritis of foot Current Visit: Yes Status: Acute Priority: High (3) Septic arthritis of knee, right Current Visit: Yes Status: Acute (4) HIV (human immunodeficiency virus infection) Current Visit: Yes Status: Chronic - Discharge Discharge Date: 08/04/16 Disposition: Home, Self-Care Condition: Stable Prescriptions: New Levofloxacin [Levofloxacin 500MG/100ML D5W] 500 mg PO Q24H10 #10 tab No Action Melatonin 6 mg PO DAILY Gabapentin 600 mg PO DAILY Acyclovir 200 mg Cap [Zovirax 200 mg ] 200 mg PO DAILY Bupropion HCl Xl 150 mg [Wellbutrin XL 150 MG] 300 mg PO DAILY Citalopram Hydrobromide [Celexa] 20 mg PO DAILY Atorvastatin Calcium [Lipitor] 10 mg PO DAILY Efavirenz/Emtricitab/Tenofovir [Atripla Tablet] 1 each PO DAILY Diphenhydramine HCl [Benadryl] 50 mg PO QHS Naproxen 500 mg PO DAILY Instructions: Cellulitis -- Adult, Drug Abuse and Drug Addiction Follow up with: AIMEE GAMA MD [Primary Care Provider] -
[2016-08-04 19:48] VITALS: BP 108/64; PULSE 73
[2016-08-04] MEDS: Zocor 10MG PO SCH (20:44)
[2016-08-04] MEDS: MOTRIN 400 MG PO PRN (20:44)
[2016-08-04] MEDS: PATIENT OWN MEDICATION PO SCH (20:45)
[2016-08-04] MEDS ORDERED: BENADRYL 25 MG CAPSULE PO SCH (22:00)
== END 2016-08-04 22:54 | disposition home or self-care (01) ==
LOC: ED 20:21 → MED SURG 22:19
PROVIDERS: ADMIT General Practice; ATTEND General Practice
DX: M00.021 Staphylococcal arthritis, right elbow (principal); M00.071 Staphylococcal arthritis, right ankle and foot; M00.061 Staphylococcal arthritis, right knee; M00.9 Pyogenic arthritis, unspecified; B20 Human immunodeficiency virus [HIV] disease; L03.113 Cellulitis of right upper limb; L03.115 Cellulitis of right lower limb; L98.499 Non-pressure chronic ulcer of skin of other sites with unspecified severity; F32.9 Major depressive disorder, single episode, unspecified; N39.0 Urinary tract infection, site not specified; F15.90 Other stimulant use, unspecified, uncomplicated
CPT/HCPCS: 36000; 36415; 73200; 73700; 80053; 80307; 81000; 83605; 84134; 85025; 85027; 87040; 90686; 96360; 96365; 99285; G0378; J1885; J1956; J3370; A9270-GY